=== PATIENT | male | born 1990 ===

== ENCOUNTER 2016-12-14 19:11 | Emergency (ER) | payer BC, OTHER ==
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
== END 2016-12-14 20:35 | disposition home or self-care (01) ==
LOC: UCEAST 19:11
DX: S16.1XXA Strain of muscle, fascia and tendon at neck level, initial encounter (principal); V43.53XA Car driver injured in collision with pick-up truck in traffic accident, initial encounter; Y93.89 Activity, other specified; Y92.413 State road as the place of occurrence of the external cause
CPT/HCPCS: 99202; G0463